=== PATIENT | female | born 1970 | race Caucasian/White ===

== ENCOUNTER → 2019-11-09 | Outpatient (CLI) | payer BC ==
--- NOTE | 2019-11-09 19:42 | PN ---
PROGRESS NOTE DATE OF SERVICE: 11/09/2019 This patient is a 49-year-old lady who [facility] of obstructive sleep apnea-hypopnea syndrome. The patient had diagnostic sleep study which showed obstructive sleep apnea-hypopnea syndrome with apnea-hypopnea index 11.3, in REM sleep 54, with oxygen desaturation to 82%. Then the patient returned for CPAP titration, but during the starting test she was not able to tolerate mask and pressure. Today she came for follow-up visit. I explained to the patient results of her sleep studies and discussed with her options for treatment. MEDICATIONS: Synthroid, Exforge, Prilosec, Flonase, Topamax, Plaquenil, Mackenzie, Naprosyn, Relpax, vitamins. PHYSICAL EXAMINATION: GENERAL: A pleasant patient in no distress. VITAL SIGNS: BP 123/91, HR around 100. Temperature 97.7, RR 14, oxygen saturation at room air 100%. Weight 228.6 pounds. HEENT: PERRLA, EOMI. Evaluation of oropharynx showed tongue protrudes midline. Low position of soft palate. NECK: Supple. No JVD. Thyroid is not palpable. LUNGS: Clear to percussion and to auscultation. Good air exchange. No wheezing or rhonchi. HEART: S1, S2 regular. No murmurs, gallops or rubs. ABDOMEN: Slightly obese. EXTREMITIES: No clubbing or cyanosis. INTELLIGENCE OPERATIONS: Awake, alert, and oriented X3. Cranial nerves 2 to 7 intact. There is no fasciculation or atrophy. noted. No focal deficits observed. We fitted the patient with an AirFit P10 medium-sized nasal pillow mask. The patient was able to tolerate the mask and minimal pressure of 4 cm of water. IMPRESSION: 1. Obstructive sleep apnea-hypopnea syndrome. 2. Obesity. 3. Hypothyroidism. 4. Tachycardia. 5. History of Sjogren syndrome. 6. Migraines. 7. Status post left breast carcinoma of a very small size, treated surgically in 2014. 8. History of joint problems secondary to Sjogren syndrome. 9. History of lymphedema on the left leg. PLAN: 1. Patient will be started on treatment with CPAP with the lowest pressure with the smallest nasal pillow mask. 2. I will see patient for follow-up visit to evaluate clinical response to treatment and compliance with treatment and to make any necessary adjustments related to mask fitting, pressure, humidification. 3. Losing weight. 4. No driving if feeling any sleepiness. Thank you very much for allowing me to participate in the management of your patient. Sincerely, Chu Marx MD, PhD, FAASM Diplomat of [employer] [employer] [employer] [facility] [place] MMODL / IJN: [id number] /
== END | disposition home or self-care (01) ==
LOC: SLEEP 16:20
PROVIDERS: ATTEND Internal Medicine
DX: G47.33 Obstructive sleep apnea (adult) (pediatric) (principal); E66.9 Obesity, unspecified; E03.9 Hypothyroidism, unspecified; R00.0 Tachycardia, unspecified; G43.909 Migraine, unspecified, not intractable, without status migrainosus; Z86.2 Personal history of diseases of the blood and blood-forming organs and certain disorders involving the immune mechanism; Z85.3 Personal history of malignant neoplasm of breast; Z87.2 Personal history of diseases of the skin and subcutaneous tissue; Z79.899 Other long term (current) drug therapy